=== PATIENT | female | born 1960 | race Caucasian/White ===

== ENCOUNTER 2020-12-15 16:50 | Emergency (ER) | payer OTHER ==
[~2020-12-15] VITALS: Ht 162.6 cm; Wt 57.2 kg
--- NOTE | 2020-12-15 17:01 | NUR ---
NIVIA JARVIS AT BEDSIDE FOR EVAL.
[2020-12-15] MEDS ORDERED: HYDROCODONE/APAP 5/325MG TABLET ONE (17:27)
[2020-12-15] MEDS ORDERED: HYDROCODONE/APAP 5/325MG TABLET PO ONE (17:30)
--- NOTE | 2020-12-15 17:30 | NUR ---
RADIOLOGY AT BEDSIDE FOR L KNEE XRAY.
[2020-12-15] MEDS ORDERED: HYDR-4303 PO (18:21)
[2020-12-15] MEDS ORDERED: IBUP-1955 PO (18:21)
[2020-12-15 19:01] VITALS: BP 128/86
== END 2020-12-15 19:07 | disposition home or self-care (01) ==
LOC: ER 16:52
DX: S89.82XA Other specified injuries of left lower leg, initial encounter (principal); M25.462 Effusion, left knee; M19.90 Unspecified osteoarthritis, unspecified site; Z88.1 Allergy status to other antibiotic agents; Z79.899 Other long term (current) drug therapy; X50.1XXA Overexertion from prolonged static or awkward postures, initial encounter; Y93.01 Activity, walking, marching and hiking; Y92.89 Other specified places as the place of occurrence of the external cause; Y99.8 Other external cause status
CPT/HCPCS: 73564-TC

== ENCOUNTER 2025-02-23 19:01 | Emergency (ER) | payer OTHER ==
[~2025-02-23] VITALS: Ht 152.4 cm; Wt 63.5 kg
[~2025-02-23 19:01] MED LIST: HYDR-4303 PO; IBUP-1955 PO
[2025-02-23] MEDS ORDERED: ONDANSETRON HCL/PF 4 MG/2 ML VIAL IVP ONE (20:00)
[2025-02-23] MEDS ORDERED: IV NS 0.9% 1,000 ML BAG IV ONE (20:00)
[2025-02-23] MEDS ORDERED: MORPHINE SULFATE INJ 2 MG/ML DISP.SYRIN IV ONE (20:00)
[2025-02-23] MEDS ORDERED: IV NS 0.9% 250 ML IV ONE (20:05)
[2025-02-23] MEDS ORDERED: CT SWABBABLE VALVE TRANS SET 1 EA INFUS.SET MC ONE (20:05)
[2025-02-23] MEDS ORDERED: IOHEXOL-300 100 ML VIAL IV ONE (20:05)
[2025-02-23 20:07] VITALS: BP 140/87; TEMP 98; O2SAT 100
== END 2025-02-23 20:07 | disposition left against medical advice (07) ==
LOC: ER 19:04
DX: S20.211A Contusion of right front wall of thorax, initial encounter (principal); R10.11 Right upper quadrant pain; I10 Essential (primary) hypertension; E11.9 Type 2 diabetes mellitus without complications; Z88.1 Allergy status to other antibiotic agents; Z79.899 Other long term (current) drug therapy
CPT/HCPCS: 99282; J7030; J7050; Q9967